=== PATIENT | male | born 1955 | race Caucasian/White ===

== ENCOUNTER 2020-04-15 14:24 | Inpatient (IN) | payer OTHER ==
[~2020-04-15] VITALS: Ht 182.9 cm; Wt 101.6 kg
[~2020-04-15 14:24] MED LIST: GLIPIZIDE10 MG PO; GLUCOPHAGE500 MG PO
--- OUTSIDE RECORDS SUMMARY | 2020-04-15 14:26 | XMS ---
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 Tereso VISIT COUNT (12 MO.) 2 [facility] TOTAL 2 NOTE: Visits indicate total known visits. ED/UCC VISIT TRACKING (12 MO.) 04/15/2020 14:24 [facility] TYPE: Emergency COMPLAINT: - POSS STROKE 04/01/2020 01:08 [facility] TYPE: Emergency COMPLAINT: - SHARP BACK PAIN DIAGNOSES: - Hydronephrosis with renal and ureteral calculous obstruction - Unspecified abdominal pain - rn long term care (current) use of oral hypoglycemic drugs - Other intermodal customer service (current) drug therapy - Type diabetes mellitus without complications INPATIENT VISIT TRACKING (12 MO.) No inpatient visits to display in this time frame [email or web address]
--- NOTE | 2020-04-15 17:30 | NUR ---
PATIENT ARRIVED TO THE CCU ROOM 129 ON A NICARDAPINE GTT AT 5MG/HR. ON ARRIVAL PATIENT COMPLAING OF RIGHT ARM PAIN THAT IS SIMILAR TO LAST NIGHT AND JUST STARTED IN THE ER ABOUT 20 MINUTES AGO AGAIN. EKG ORDERED. PATIENT DENEIS SOB, CHEST PAIN, ACID REFLUX, AND JAW PAIN. PATIENT STOOD FROM STRETCHER TO THE BED AND TOLERATED WELL. WILL DO PATIENT ASSESSMENT AND MD WILL BE DOWN TO EVALUATE PATIENT.
--- NOTE | 2020-04-15 18:30 | NUR ---
MEDICATION GIVEN. PATIENT ASSESSMENT COMPLETED. PATIENTS NIH ON ARRIVAL TO THE UNIT WAS 5, WHICH IS WHERE HE HAS BEEN IN THE ER. BEDSIDE SWALLOW DONE PER ORDERS. PATIENT TOELRATED WELL AND NO SWALLOWING ISSUES NOTED. DINENR ORDERED. MEDICATIONS ADMINISTERED. WILL CONTINUE TO CLOSELY MONTIOR.
--- NOTE | 2020-04-15 18:55 | NUR ---
CALLED MD HAJI AND UPDATED ON LAB RESULTS OF NEGATIVE TROPONIN. PER MD MAY GO AHEAD AND STOP NICARDAPINE GTT SINCE LISINOPRIL HAS BEEN GIVEN. TRY AND KEEP PATIENT OFF GTT USING PRN IV PUSH MEDICATION INSTEAD. IF BLOOD PRESSURES ARE NOT CONTROLLED WILL PLACE BACK ON NICARDAPINE GTT. PATIENT UPDATED ON PLAN OF CARE. NO OTHER NEEDS AT THIS TIME. WILL CONTINUE TO CLOSELY MONITOR.
--- NOTE | 2020-04-15 19:30 | NUR ---
REPORT RECEIVED. CARE OF PATIENT ASSUMED AT THIS TIME. PATIENT STANDING AT BEDSIDE TO VOID. STEADY ON FEET. NO NEEDS AT THIS TIME.
--- NOTE | 2020-04-15 20:15 | NUR ---
IN ROOM FOR ASSESSMENT. PT STATES HE HAS 7/10 RIGHT ARM PAIN. STATES THE PAIN IS A CONSTANT ACHE AND IS SIMILAR TO THE PAIN HE WAS HAVING BEFORE HIS STROKE SYMPTOMS WORSENED YESTERDAY. PTS RIGHT HAND OTHER SPATIAL SCIENTIST IS WEAKER THAN THE LEFT. DR HAJI IN TO CHECK ON PATIENT. DISCUSSED ISSUES WITH RIGHT ARM PAIN. ORDERS RECIEVED (SEE EMAR).
--- NOTE | 2020-04-15 22:21 | NUR ---
pt blood pressure 179/100. PRN medication given at this time (see emar).
--- NOTE | 2020-04-15 23:30 | NUR ---
PT RESTING IN BED WITH EYES CLOSED, BREATHING EVEN AND UNLABORED. RR=18. CALL LIGHT WITHIN REACH. NO FURTHER NEEDS AT THIS TIME
--- NOTE | 2020-04-16 01:14 | NUR ---
ASSESSMENT COMPLETED. PT STATES RIGHT ARM PAIN HAS DECREASED. NIH =3. PT STILL HAS WEAKNESS IN RIGHT ARM AND LEG BUT DENIES ANY WORSENING OF SYMPTOMS. DISCUSSED PLAN TO MOVE PATIENT OVER TO THE MEDICAL FLOOR. ALL QUESTIONS ANSWERED. NO FURTHER NEEDS AT THIS TIME.
--- NOTE | 2020-04-16 03:00 | NUR ---
Pt sleeping. Remains on shelter monitor. will continue to monitor
--- NOTE | 2020-04-16 05:25 | NUR ---
report given to medical surgical assistant
--- NOTE | 2020-04-16 05:40 | NUR ---
pt MOVED FROM CCU TO MED/SURG IN BED. ALERT AND ORIENTED. ABLE TO STAND BUT STUMBLED WHEN TRYING TO AMBULATE. REPORTED HE FELT HIS STRENGTH WAS NORMAL IN HIS RIGHT LEG. HIS RIGHT ARM HAS SOME MOVEMENT. SPEECH IS SLOW AND HE STUMBLES OVER WORDS. VITALS DONE. pt REQUESTED TO DO ORAL CARE. MENTAL HEALTH AIDES TEACHER ASSISTED. SITTING ON SIDE OF BED WITH CALL LIGHT WITHIN REACH.
--- NOTE | 2020-04-16 06:29 | NUR ---
MRI SCREENING FORM COMPLETE AT THIS TIME PER REQUEST OF PRIMARY RN ALONZO. ALL QUESTIOSN ANSWERED, FORM TO FRONT OF CHART. PRIMARY RN MADE AWARE. PT DENIES FURTHER NEEDS, CALL LIGHT IN REACH.
--- NOTE | 2020-04-16 07:45 | NUR ---
GLUCOSE CHECKED AND RECORDED, PATIENT DENIES BREAKFAST THIS MORNIN,"I'M STILL BURPING UP LAST NIGHTS DINNER" WILL CALL WITH ANY NEEDS.
--- NOTE | 2020-04-16 08:28 | NUR ---
NIH SCALE COMPLETED, NOTED SLIGHT INCREASE IN WEAKNESS TO R ARM AND HAND, PT FEELS SPEECH IN MORE GARBLED WELL. PT IS ABLE TO STAND LINENS STRAIGHTENED FOR COMFORT, PT REFUSING TO REMOVE JEANS AT THIS TIME, SMALL EMESIS OF WATER AFTER MOVEMENT, STATES HE FEELS BETTER, QUITE ANXIOUS THIS MORNING, NEEDING LOTS OF SUPPORT. MRI SCHEDULED FOR 11:00. REFUSING TO ORDER BREAKFAST AT THIS TIME. USING CALL LIGHT APPROP.
--- NOTE | 2020-04-16 10:13 | NUR ---
ANXIETY HAS IMPROVED SINCE WORKING WITH PHYSICAL THERAPY, PT ABLE TO AMBULATE INTO HALLWAY USING WALKER.
[2020-04-16] MEDS ORDERED: MOBIC15 MG PO (10:23)
[2020-04-16] MEDS ORDERED: ZOCOR40 MG PO (10:24)
--- NOTE | 2020-04-16 10:36 | NUR ---
PATIENT SITTING AT SIDE OF BED WITH EMESIS BAG. VITALS AND I&OS CHARTED. CALL LIGHT IN REACH, NO OTHER NEEDS
--- NOTE | 2020-04-16 10:56 | NUR ---
PT TO MRI AT THIS TIME, ZOFRAN GIVEN.
--- NOTE | 2020-04-16 11:45 | NUR ---
RETURNED FROM MRI, ASSISTED BACK TO BED FOR COMFORT, C/O R SHOULDER PAIN 01/25 DUE TO SHOULDER BEING PULLED UP WHEN HE WAS MOVED OUT OF MRI MACHINE. POSITIONED WITH R ARM AND SHOULDER SUPPORTED AND POSITIONED WITH ICE PACK TO SHOULDER. PT DECLINES TYLENOL FOR DISCOMFORT. CALL LIGHT IN EASY REACH.
--- NOTE | 2020-04-16 12:13 | NUR ---
PT HAS JUST RETURNED FROM IMAGING. WILL LET GET SETTLED AND CHECK BACK
--- NOTE | 2020-04-16 13:21 | NUR ---
PT CONT TO HAVE SHOULDER DISCOMFORT, SPOKE WITH DR HAJI AND WILL ORDER X-RAY.
[2020-04-16] MEDS ORDERED: ACETAMINOPHEN-1 EAC1 PO (13:34)
[2020-04-16] MEDS ORDERED: VITAMIN D3125 MC2 PO (13:35)
[2020-04-16] MEDS ORDERED: VITAMIN B-121000 MCG PO (13:35)
[2020-04-16] MEDS ORDERED: B COMPLEX1 EACH PO (13:35)
[2020-04-16] MEDS ORDERED: GLUCOSAMINE HC500 MG PO (13:36)
[2020-04-16] MEDS ORDERED: ADULT ASPIRIN R81 MG PO (13:36)
--- NOTE | 2020-04-16 13:36 | NUR ---
MED REC COMPLETE
--- NOTE | 2020-04-16 14:20 | NUR ---
Spoke with Fidel. He has slight facial droop on the R and lightly slurred speach. 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 Lives in a 3 story home with his brother/ and mother. He lives in the basement with 15 steps into his apartment. He would like to dc to home. He worked with OT and PT and they feel he would do well at OP therapy for rehab. Pt has had an echo and MRI today and awaiting to see Dr. Sotelo. Pt also will work with ST. DC plan is pending until he works with ST and sees Dr. Sotelo.
--- NOTE | 2020-04-16 14:26 | NUR ---
PATIENT AWAKE IN BED, STILL WORKING ON LUNCH. VITALS AND I&OS CHARTED. NO OTHER NEED AT THIS TIME
--- NOTE | 2020-04-16 15:10 | NUR ---
ATE 75% OF LUNCH, IN GOOD SPIRITS, TV IS NOW ON. DENIES ANY NEEDS.
--- NOTE | 2020-04-16 17:21 | EKG ---
[facility] [address] [facility] [place], [place] [address] Signed Normal sinus rhythm Nonspecific ST and T wave abnormality Abnormal ECG No previous ECGs available Confirmed by DELFIN HAJI DO ([id number]) on 04/16/2020 5:21:26 PM Electronically Signed By: DELFIN HAJI DO 04/16/20 1721 PATIENT NAME: SONYA ESQUIVEL Electrocardiogram DATE OF : 57 PHYSICIAN: DELFIN HAJI DO REPORT #: [id number] REPORT IS CONFIDENTIAL AND NOT TO BE RELEASED WITHOUT AUTHORIZATION
--- NOTE | 2020-04-16 17:22 | EKG ---
[facility] [address] [facility] [place], [place] [address] Signed Normal sinus rhythm Normal ECG No previous ECGs available Confirmed by DELFIN HAJI DO ([id number]) on 04/16/2020 5:21:49 PM Electronically Signed By: DELFIN HAJI DO 04/16/20 1722 PATIENT NAME: SONYA ESQUIVEL Electrocardiogram DATE OF : 57 PHYSICIAN: DELFIN HAJI DO REPORT #: [id number] REPORT IS CONFIDENTIAL AND NOT TO BE RELEASED WITHOUT AUTHORIZATION
--- NOTE | 2020-04-16 17:34 | NUR ---
SITTING UP ON EDGE OF BED FOR DINNER, TRIED TO DISCUSS DIABETIC EDUCATION WITH PT. HE ASKED NOT TO TALK ABOUT IT, STATED HE HAS HAD TONS OF EDUCATION AND IT DOES NOT WORK. REFUSED TO DISCUSS DIET CHOICES AND STATES HE DOES NOT CHECK BLOOD SUGAR ANYMORE AT HOME. REFUSED TO ACCEPT EDUCATION MATERIALS OR TO SPEAK TO RAVELER. SPOKE WITH CHARGE NURSE AND WILL REAPPROACH IN MORNING.
--- NOTE | 2020-04-16 18:30 | NUR ---
PATIEN AT SIDE OF BED WITH EMESIS BAG. DINNER ON BEDSIDE TABLE. VITALS AND I&OS CHARTED, CALL LIGHT IS WITHIN REACH, NO OTHER NEEDS AT THIS TIME
--- NOTE | 2020-04-16 19:15 | NUR ---
RECEIVED REPORT FROM REGINE EDGE. pt RESTING IN BED. NO REQUESTS AT THIS TIME. WOULD LIKE SOME PAIN MEDICATION WITH NIGHT MEDS FOR SORE SHOULDER. WHITEBOARD UPDATED. CALL LIGHT WITHIN REACH.
--- NOTE | 2020-04-16 19:41 | NUR ---
RECEIVED REPORT FROM REGINE HERNANDEZ. pt RESTING IN BED WATCHING TV. PROVIDED ICE WATER. NO FURTHER REQUESTS AT THIS TIME. DISCUSSED PLAN OF CARE AND MEDICATIONS. pt AGREABLE TO PLAN. CALL LIGHT WITHIN REACH.
--- NOTE | 2020-04-16 20:30 | NUR ---
IN TO DO ASSESSMENT. pt RESTING IN BED. REPORTED "DISCOMFORT" IN RIGHT ARM. PRN PAIN MED GIVEN (SEE MAR). DISCUSSED PLAN OF CARE. ASSESSMENT DONE. VERY LITTLE MOVEMENT IN RIGHT ARM. VITALS AND I&O RECORDED. PROVIDED FRESH WATER. CALL LIGHT WITHIN REACH.
--- NOTE | 2020-04-16 20:51 | NUR ---
SPOKE WITH DR. HAJI, ORDERED TO DC NEURO CHECKS.
--- NOTE | 2020-04-16 23:03 | NUR ---
pt UP TO VOID, SBA FWW. PRN FOR HEARTBURN. REPORTED PAIN HAS IMPROVED WILL CALL IF HE NEEDS MEDS. CALL LIGHT WITHIN REACH.
--- NOTE | 2020-04-17 00:16 | NUR ---
ROUNDED ON pt. RESTING WITH EYES CLOSED, RESPIRATIONS REGULAR AND UNLABORED. CALL LIGHT WITHIN REACH.
--- NOTE | 2020-04-17 01:41 | NUR ---
ROUNDED ON pt. RESTING WITH EYES CLOSED, RESPIRATIONS REGULAR AND UNLABORED. HR 58. CALL LIGHT WITHIN REACH.
--- NOTE | 2020-04-17 03:40 | NUR ---
ROUNDED ON pt. RESTING IN BED WITH EYES CLOSED, RESPIRATIONS REGULAR AND UNLABORED. CALL LIGHT WITHIN REACH.
--- NOTE | 2020-04-17 06:54 | NUR ---
IN TO DO VITALS. pt AWAKE IN BED. AMB TO TOILET, SBA FWW. BACK TO BED. VITALS AND I&O RECORDED. ASSESSMENT DONE. PROVIDED FRESH WATER. NO FUTHER REQUESTS AT THIS TIME. CALL LIGHT WITHIN REACH.
--- NOTE | 2020-04-17 08:23 | NUR ---
REPORT RECEIVED. PATIENT RESTING IN BED. BREAKFAST ORDERED. PATIENT DENIES PAIN. CALL LIGHT WITHIN REACH. NO REQUESTS AT THIS TIME. TELE #[address] HR NSR 61 BPM. RESPIRATIONS EVEN AND UNLABORED.
[2020-04-17] MEDS ORDERED: AMLODIPINE BES2.5 MG PO (09:25)
[2020-04-17] MEDS ORDERED: LIPITOR40 MG PO (09:25)
[2020-04-17] MEDS ORDERED: LISINOPRIL20 MG PO (09:26)
[2020-04-17] MEDS ORDERED: LANTUS100 UNITS/ SUB-Q (09:26)
[2020-04-17] MEDS ORDERED: INSULIN SYRING1 EA47 MISC (09:27)
--- NOTE | 2020-04-17 09:55 | NUR ---
PATIENT SITTING AT SIDE OF BED. VITALS AND I&OS CHARTED. PATIENT IN GOOD SPIRITS, EXCITED TO BE DISCHARGED BACK HOME.
--- NOTE | 2020-04-17 10:59 | NUR ---
REVIEWED DISCHARGE INSTRUCTION WITH PATIENT AND SISTER, VERBALIZES UNDERSTANDING OF S/SX TO REPORT, TO SCHEDULE FOLLOW UP APPOINTMENT ON SUNDAY, MEDICATIONS INSTRUCTIONS AND SIDE EFFECTS, ALSO HAD ALREADY SPOKE WITH PHARMACY. DENIES ANY QUESTIONS OR CONCERNS. SLX2 DC INTACT, FLU SHOT GIVEN. DC TO HOME ACCOMPANIED BY SISTER AT THIS TIME.
--- NOTE | 2020-04-19 07:55 | NUR ---
Pt dc over the weekend. Referral for OP therapy. consult, DC summary, PT/OT eval and notes, Face sheet faxed to OP Therapy.
== END 2020-04-17 10:50 | disposition home or self-care (01) | DRG 66 ==
LOC: ED 14:24 → CCU 16:15 → MS 04-16 05:38
PROVIDERS: ADMIT Student in an Organized Health Care Education/Training Program; ATTEND Student in an Organized Health Care Education/Training Program
DX: I63.81 Other cerebral infarction due to occlusion or stenosis of small artery (principal); R29.703 NIHSS score 3; E11.9 Type 2 diabetes mellitus without complications; Z20.828 Contact with and (suspected) exposure to other viral communicable diseases; I10 Essential (primary) hypertension; E78.5 Hyperlipidemia, unspecified; R29.810 Facial weakness; R47.01 Aphasia; R47.81 Slurred speech; R20.0 Anesthesia of skin; G83.21 Monoplegia of upper limb affecting right dominant side; Z23 Encounter for immunization; Z66 Do not resuscitate; Z79.84 Long term (current) use of oral hypoglycemic drugs
CPT/HCPCS: 36415; 70450; 70496; 70498; 70551; 71045; 73030; 80048; 80053; 80061; 83036; 83735; 84484; 85025; 85610; 85730; 90686; 92523; 93005; 93010; 93306; 97112; 97116; 97161; 97166; 99285-25; C9803; J1650; J1815; J2405; J7060; Q3014; Q9967; U0003